=== PATIENT | male | born 1930 | race Caucasian/White ===

== ENCOUNTER 2016-09-05 10:48 | Day surgery (SDC) | payer MEDICARE, OTHER ==
[~2016-09-05] VITALS: Ht 180.3 cm; Wt 81.4 kg
[2016-09-05 11:12] VITALS: BP 160/68; PULSE 67; RESP 20; TEMP 97.5; O2SAT 95
[2016-09-05] MEDS ORDERED: LISI2.5T3 PO (11:13)
[2016-09-05] MEDS ORDERED: LEVO.1 PO (11:13)
[2016-09-05] MEDS ORDERED: CENTTAB PO (11:13)
[2016-09-05] MEDS ORDERED: ASPI81CH CHEW (11:13)
[2016-09-05] MEDS ORDERED: ATOR1TAB18 PO (11:13)
[2016-09-05] MEDS ORDERED: SITA50 PO (11:13)
[2016-09-05] MEDS ORDERED: AMLO5TAB2 PO (11:13)
[2016-09-05] MEDS ORDERED: LACTATED RINGER'S 1000 ML IV SCH (11:30)
[2016-09-05] MEDS ORDERED: INSULIN HUMAN REGULAR 1,000 UNITS/10 ML VIAL SQ PRN (11:30)
[2016-09-05] MEDS ORDERED: ceFAZolin 2 GM PREMIX 50 ML IV SCH (11:30)
[2016-09-05] MEDS ORDERED: SODIUM CHLORID 0.9% 500 ML IV SCH (11:30)
[2016-09-05] MEDS ORDERED: METOPROLOL TARTRATE 25 MG TAB PO PRN (11:30)
[2016-09-05] MEDS ORDERED: SODIUM CHLOR 0.9% 1000 ML INJ 1,000 ML IV SCH (11:30)
[2016-09-05] MEDS ORDERED: PROPOFOL 200 MG/20 ML AMP IV ONE (12:15)
[2016-09-05 13:28] LABS: AUTOMATED NEUTROPHIL # 9.3 TH/MM3 (1.8-7.7); BASOPHIL # 0.1 TH/MM3 (0-0.2); BASOPHIL % 0.9 % (0.0-2.0); EOSINOPHIL # 0.3 TH/MM3 (0-0.4); EOSINOPHIL % 2.8 % (0.0-4.0); HEMATOCRIT 34.8 % (39.0-51.0); LYMPH % 10.1 % (9.0-44.0); LYMPHOCYTE # 1.2 TH/MM3 (1.0-4.8); MEAN CELL VOLUME 91.7 FL (80.0-100.0); MEAN CORPUSCULAR HEMOGLOBIN 31.4 PG (27.0-34.0); MEAN CORPUSCULAR HGB CONC 34.2 % (32.0-36.0); MONO % 7.2 % (0.0-8.0); PLATELET COUNT 241 TH/MM3 (150-450); WHITE BLOOD COUNT 11.8 TH/MM3 (4.0-11.0)
[2016-09-05 13:37] LABS: HEMO FLAGS AUTO DIFF
[2016-09-05 13:38] LABS: APTT (PATIENT) 22.6 SEC (24.3-30.1); PROTHROMBIN TIME - PATIENT 11.4 SEC (9.8-11.6)
[2016-09-05] MEDS ORDERED: fentaNYL CITRATE 250 MCG/5 ML AMP ONE (13:47)
[2016-09-05 14:04] LABS: BANDS 2 % (0-6); EOSINOPHILS 2 % (0-4); NEUTROPHIL # MANUAL DIFF 9.9 TH/MM3 (1.8-7.7); POLYS (SEG NEUTROPHILS) 82 % (16-70); WBC DIFF SAMPLE 100
[2016-09-05 14:05] LABS: OVALOCYTES 1+ (NORMAL); PLATELET ESTIMATE SMEAR NORMAL (NORMAL); PLATELET MORPHOLOGY NORMAL (NORMAL); SCAN/DIFF FINAL DIFF MANUAL
--- NOTE | 2016-09-05 15:21 | PD.RAD ---
Post Procedure Progress Note Pre Procedure Diagnosis: (1) Osteoporotic compression fracture of spine Post Procedure Diagnosis: (1) Osteoporotic compression fracture of spine Procedure Date: Sep 05, 2016 Supervising Radiologist: Derrek Garcia Proceduralist/Assist: RT Jonathan(R)() Anesthesia: General Plan of Activity Patient to Unit: PACU Patient Condition: Good See PACS Report for procedural detail/treatment Spinal Procedure T12, L1 Total Bone Cement (CCs): 8 Derrek Garcia MD Sep 05, 2016 15:21
[2016-09-05] MEDS ORDERED: oxyCODONE/ACETAMINOPHEN 5 MG/325 MG TAB PO PRN ×2 (15:30)
[2016-09-05] MEDS ORDERED: HYDROmorphone HCL PF 1 MG/ML VIAL IVS PRN ×2 (15:30)
[2016-09-05] MEDS ORDERED: DO NOT ADM ANY ANTICOAGULANT DRUGS XX PRN (15:40)
[2016-09-05 16:45] VITALS: BP 117/54; PULSE 52; RESP 18; TEMP 97.8; O2SAT 95
[2016-09-05 17:00] VITALS: BP 123/54; PULSE 52; RESP 18; O2SAT 95
--- NOTE | 2016-09-05 17:11 | RADRPT ---
EXAM DATE/TIME: 09/05/2016 12:37 [facility] COMPARISON: No previous studies available for comparison. INDICATIONS : Patient in need of IV access for kyphoplasty. MEDICAL HISTORY : Diabetes Balance problem HTN Fracture of T12 and L1 Heart failure SURGICAL HISTORY : Cardiac cathiterization with stent placement Bilateral cataract removal Colonoscopy ENCOUNTER: Initial ACUITY: 3 days PAIN SCORE: ACCESS: Right brachial vein DEVICE(S): 1.) 3/4 [place] Dilator PROCEDURE : 1. Ultrasound guided venous access. The risks, benefits and alternatives to the procedure were explained and verbal and written consent w as obtained. The site was prepped in sterile fashion. Full sterile technique was used, including ca p, mask, sterile gloves and gown and a large sterile sheet. Hand hygiene and 2% chlorhexidine and/or betadine/alcohol prep was utilized per protocol for cutaneous antisepsis. The skin and subcutaneous tissues were infiltrated with local anesthetic solution. With ultrasound guidance the prescribed vein was punctured for venous access. A 4 Emir[place] dilator was placed and was flushed and locked with heparin. The patient tolerated procedure well and there were n o complications. CONCLUSION: Uncomplicated ultrasound guided venous access. Derrek Garcia MD on September 05, 2016 at 17:09 Board Certified Radiologist. This report was verified electronically.
--- NOTE | 2016-09-05 17:16 | RADRPT ---
EXAM DATE/TIME: 09/05/2016 13:22 [facility] COMPARISON: No previous studies available for comparison. INDICATIONS : Patient who fell 3 days ago in need of kyphoplasty to repair T12 and L1 fractures. MEDICAL HISTORY : Diabetes Balance problem HTN Fracture of T12 and L1 Heart failure SURGICAL HISTORY : Cardiac cathiterization with stent placement Bilateral cataract removal Colonoscopy ENCOUNTER: Initial ACUITY: 3 days PAIN SCORE: 5/10 LOCATION: mid back FLUORO TIME: 26.9 minutes LEVEL: L1 DEVICE: 1. AVAMax bone cement 4.5 cc Anesthesia and pain control was provided by the Anesthesia department. TECHNIQUE: Department of anesthesia representatives were present for monitoring and sedation purp oses. The patient was placed prone on the fluoroscopy table. The back was prepped in sterile fashion. Full sterile technique was used, including cap, mask, sterile gloves and gown and a large sterile sh eet. Hand hygiene and 2% chlorhexidine and/or betadine/alcohol prep was utilized per protocol for cut aneous antisepsis. The skin and subcutaneous tissues were infiltrated with lidocaine solution. A smal l dermatotomy was made using a #11 scalpel blade. Using a left posterior paramedian transpedicular ap proach, a 11 gauge Jamshidi needle was introduced to the L1 vertebral body. A curved needle implement was introduced, resulting in good cavity creation and some degree of vertebral height denominational. A VAmax bone cement was then introduced with good symmetric filling of the vertebral body. A total volu me of 4.5 mL's of cement was introduced. Completion imaging was performed with digital technique. The patient tolerated the procedure well and was taken to the recovery area in stable condition. CONCLUSION: Uncomplicated fluoroscopic guided percutaneous vertebral augmentation as described in detail above. Derrek Garcia MD on September 05, 2016 at 17:13 Board Certified Radiologist. This report was verified electronically.
--- NOTE | 2016-09-05 17:18 | RADRPT ---
EXAM DATE/TIME: 09/05/2016 13:22 [facility] COMPARISON: No previous studies available for comparison. INDICATIONS : Patient who fell 3 days ago in need of kyphoplasty to repair T12 and L1 fractures. MEDICAL HISTORY : Diabetes Balance problem HTN Fracture of T12 and L1 Heart failure SURGICAL HISTORY : Cardiac cathiterization with stent placement Bilateral cataract removal Colonoscopy ENCOUNTER: Initial ACUITY: 3 days PAIN SCORE: 5/10 LOCATION: mid back FLUORO TIME: 26.9 minutes LEVEL: T12 DEVICE: 1. AVAMax bone cement 3.5 cc Anesthesia and pain control was provided by the Anesthesia department. TECHNIQUE: Department of anesthesia representatives were present for monitoring and sedation purp oses. The patient was placed prone on the fluoroscopy table. The back was prepped in sterile fashion. Full sterile technique was used, including cap, mask, sterile gloves and gown and a large sterile sh eet. Hand hygiene and 2% chlorhexidine and/or betadine/alcohol prep was utilized per protocol for cut aneous antisepsis. The skin and subcutaneous tissues were infiltrated with lidocaine solution. A smal l dermatotomy was made using a #11 scalpel blade. Using a posterior paramedian bilateral transpedicul ar approach, 11 gauge Jamshidi needles were introduced to the T12 vertebral body. A para of 15 mL bon e tamps were introduced and inflated, resulting in good cavity creation and some degree of vertebral height adventist. AVAmax bone cement was then introduced with good symmetric filling of the vertebr al body. A total volume of 3.5 mL's of cement was introduced. Completion imaging was performed with d igital technique. The patient tolerated the procedure well and was taken to the recovery area in stab le condition. CONCLUSION: Uncomplicated fluoroscopic guided percutaneous vertebral augmentation as described in detail above. Derrek Garcia MD on September 05, 2016 at 17:15 Board Certified Radiologist. This report was verified electronically.
--- NOTE | 2016-09-05 22:25 | EKG ---
Date Performed: 09/05/2016 Time Performed: 11:26:29 PTAGE: 86 years EKG: Sinus rhythm BORDERLINE LEFT AXIS DEVIATION BORDERLINE ECG NO PREVIOUS TRACING DOCTOR: Fadi Ricardo Interpretating Date/Time 09/05/2016 22:23:36
== END 2016-09-05 18:05 | disposition home or self-care (01) ==
LOC: HROP 10:48 → HRIP 10:50 → HROP 18:05
PROVIDERS: ATTEND Specialist
DX: S32.019A Unspecified fracture of first lumbar vertebra, initial encounter for closed fracture (principal); S22.089A Unspecified fracture of T11-T12 vertebra, initial encounter for closed fracture; I50.9 Heart failure, unspecified; I10 Essential (primary) hypertension; E11.9 Type 2 diabetes mellitus without complications; W19.XXXA Unspecified fall, initial encounter; Z01.810 Encounter for preprocedural cardiovascular examination; Z01.818 Encounter for other preprocedural examination
CPT/HCPCS: 22513; 22515; 36410; 76937; 85007; 85027; 85610; 85730; 93005; J3010

== ENCOUNTER 2016-09-12 14:19 | Day surgery (SDC) | payer MEDICARE, OTHER ==
[~2016-09-12 14:19] MED LIST: AMLO5TAB2 PO; ASPI81CH CHEW; ATOR1TAB18 PO; CENTTAB PO; LEVO.1 PO; LISI2.5T3 PO; SITA50 PO
[2016-09-12 14:48] VITALS: BP 165/69; PULSE 72; RESP 16; TEMP 95.4; O2SAT 98
--- NOTE | 2016-09-12 15:40 | RADRPT ---
EXAM DATE/TIME: 09/12/2016 00:00 [facility] COMPARISON : INDICATIONS : FOLLOW UP KYPHOPLASTY OBJECTIVE: Temperature: 95.4 Heart Rate: 72 Blood Pressure: 165/69 Respiratory: 16 Oximetry: 98 PNEUMONIA VACCINE: YES HISTORY OF PRESENT ILLNESS: ? PAST MEDICAL HISTORY : 1. BALANCE PROBLEMS 2. CARDIAC STENTS 3. Hypertension. 4. RENAL DISEASE 5. Diabetes mellitus type 2. PAST SURGICAL HISTORY : 1. Coronary artery stent. STENTS SOCIAL HISTORY : ALLERGIES: 1. BACTRIM 2. Cipro 3. CLINDAMYCIN 4. Penicillin MEDICATIONS: 1. AMLODIPINE 5 mg q.d. 2. Pinpcrl74 mg q.d. 3. ATORVASTATIN 80 mg q.h.s. 4. LEVOTHYROXINE 100 mcg q.d. 5. LISINOPRIL 2.5 mg q.d. 6. MULTIVITAMIN 1 TAB q.d. 7. SITAGLIPTIN 50 mg q.d. PHYSICAL EXAMINATION: The patient returns for followup one week status post 2 level kyphoplasty at the thoracolumbar juncti on. He states that his pain is improved majority of the time that still experiences significant pain upon occasion. He is taking no pain medications and does not desire to do so. He has no bladder or yamila wel difficulties or weakness of the lower extremities. ASSESSMENT: Partial symptomatic relief following kyphoplasty. PLAN: Continued conservative therapy. If his pain does not continue to improve he is to contact our office. TIME SPENT: 15 minutes Taye Fung MD on September 12, 2016 at 15:36 Board Certified Radiologist. This report was verified electronically.
== END 2016-09-12 15:28 | disposition home or self-care (01) ==
LOC: HROP 14:19 → HRIP 14:20 → HROP 15:28
PROVIDERS: ATTEND Radiology Body Imaging
DX: Z09 Encounter for follow-up examination after completed treatment for conditions other than malignant neoplasm (principal)